=== PATIENT | male | born 1985 | race Caucasian/White ===

== ENCOUNTER 2018-08-15 15:48 | Outpatient (CLI) | END 2018-08-15 15:49 | disposition home or self-care (01) | LOC: FCC-LAB 15:48 | PROVIDERS: ATTEND Family Medicine | DX: Z00.00 Encounter for general adult medical examination without abnormal findings (principal); R20.2 Paresthesia of skin | CPT/HCPCS: 36415; 80053; 80061; 82607; 84443; 85025 ==